=== PATIENT | female | born 1985 ===

== ENCOUNTER 2018-03-12 10:56 | Emergency (ER) | payer OTHER ==
[~2018-03-12] VITALS: Ht 157.5 cm; Wt 66.9 kg
[2018-03-12 11:12] VITALS: TEMP 37; Ht 157.5 cm; Wt 66.9 kg
[2018-03-12 11:57] LABS: BASO % 1.2 %; BASO ABS # 0.05 K/uL (0-0.2); EOS ABS # 0.17 K/uL (0-0.5); HEMATOCRIT 39.5 % (37-47); HEMOGLOBIN 13.4 g/dL (12.0-16.0); IG# 0.01 K/uL (0.00-0.02); LYMPH % 26.3 %; LYMPH ABS # 1.11 K/uL (1.2-3.4); MEAN CORPUSCULAR HEMOGLOBIN 30.5 pg (25-34); MEAN CORPUSCULAR HGB CONC 33.9 g/dl (32-36); MEAN PLATELET VOLUME 10.9 fL (7.4-10.4); MONO ABS # 0.38 K/uL (0.11-0.59); NEUT % 59.3 %; PLATELET COUNT 217 K/uL (130-400); RED CELL DISTRIBUTION WIDTH CV 12.7 % (11.5-14.5); RED CELL DISTRIBUTION WIDTH SD 41.6 fL (36.4-46.3); WHITE BLOOD COUNT 4.22 K/uL (4.8-10.8)
[2018-03-12 12:26] LABS: ALBUMIN 4.2 gm/dl (3.4-5.0); CALCIUM 9.1 mg/dl (8.5-10.1); CREATININE 0.81 mg/dl (0.60-1.20); POTASSIUM 3.8 mmol/L (3.5-5.1); TOTAL PROTEIN 8.1 gm/dl (6.4-8.2)
[2018-03-12] MEDS ORDERED: SULF800T23 PO (13:35)
--- NOTE | 2018-03-12 13:36 | EMERGENCY ROOM VISIT NOTE ---
History First contact with patient: 11:18 Chief Complaint: DIZZY Stated Complaint: SICK TO STOMACH,TIRED,DIZZY,BREASTS HURT(IMPLANTS) Nursing Triage Summary: Fatigue for the past 2 weeks. Near syncopal episode yesterday and this am, nausea. Pt reports she has breast implants, placed 3 years ago. reports pain to bilateral breast for the past 2 weeks, sharp. "I just don't feel myself" History of Present Illness The patient is a 33 year old female who presents to the Emergency Room with complaints of feeling fatigued for the past 2 weeks. The patient reports that she has been tired and does not feel like herself. She has had intermittent headaches. She has had a few episodes while at work when she becomes very hot and sweaty and feels like she is going to pass out. She has not had any syncopal episodes. She states that she has been nauseous in the mornings but has not vomited. She has also had occasional sharp pains in bilateral breasts/ underarms. She has a history of breast implants which were inserted a few years ago. She denies any redness or warmth. She states she is typically healthy and does not take any medications on a daily basis. She does not have a primary care provider in the area. Review of Systems A complete 10 point review of systems was reviewed with the patient with pertinent positives and negatives as per history of present illness. All else were negative. Past Medical/Surgical History Medical Problems: (1) No significant active problems Surgical Problems: (1) History of appendectomy (2) History of bilateral breast implants Social History Smoking Status: Former Smoker Housing Status: lives with family Current/Historical Medications Scheduled Sulfa/Trimethoprim (Bactrim Ds 800MG/160MG), 1 TAB PO BID Physical Exam Vital Signs Date Time Temp Pulse Resp B/P (MAP) Pulse Ox O2 Delivery O2 Flow Rate FiO2 03/12/18 13:57 65 16 110/72 98 03/12/18 13:02 70 16 108/67 98 Room Air 03/12/18 11:56 84 18 121/80 98 Room Air 80 108/77 75 103/85 03/12/18 11:12 37.0 79 18 133/84 99 Room Air Physical Exam VITALS: Vitals are noted on the nurse's note and reviewed by myself. Vital signs stable. GENERAL: This is a 33-year-old female, in no acute distress, nondiaphoretic, well-developed well-nourished. SKIN: The skin was without rashes. EARS: External auditory canals clear, tympanic membranes pearly seo without erythema or effusion bilaterally. EYES: Pupils equal round and reactive to light and accommodation. MOUTH: Mucous membranes moist. Tonsils are not enlarged. Pharynx without erythema or exudate.. NECK: Supple without nuchal rigidity. No lymphadenopathy. HEART: Regular rate and rhythm without murmurs gallops or rubs. LUNGS: Clear to auscultation bilaterally without wheezes, rales or rhonchi. ABDOMEN: Positive bowel sounds x 4. Soft, nontender to palpation. MUSCULOSKELETAL: Full range of motion throughout. Strength 5/5 throughout. NEURO: Patient was alert and oriented to person place and time. PSYCH: Patient is pleasant with appropriate affect. Medical Decision & Procedures Laboratory Results 03/12/18 11:44 Red Blood Count 4.39, Mean Corpuscular Volume 90.0, Mean Corpuscular Hemoglobin 30.5, Mean Corpuscular Hemoglobin Concent 33.9, Mean Platelet Volume 10.9, Neutrophils (%) (Auto) 59.3, Lymphocytes (%) (Auto) 26.3, Monocytes (%) (Auto) 9.0, Eosinophils (%) (Auto) 4.0, Basophils (%) (Auto) 1.2, Neutrophils # (Auto) 2.50, Lymphocytes # (Auto) 1.11, Monocytes # (Auto) 0.38, Eosinophils # (Auto) 0.17, Basophils # (Auto) 0.05 03/12/18 11:44 Test 03/12/18 11:29 03/12/18 11:44 Urine Color YELLOW Urine Appearance CLEAR (CLEAR) Urine pH 6.5 (4.5-7.5) Urine Specific [place] 1.007 (1.000-1.030) Urine Protein NEG (NEG) Urine Glucose (UA) NEG (NEG) Urine Ketones NEG (NEG) Urine Occult Blood NEG (NEG) Urine Nitrite NEG (NEG) Urine Bilirubin NEG (NEG) Urine Urobilinogen NEG (NEG) Urine Leukocyte Esterase MODERATE (NEG) Urine WBC (Auto) 1-5 /hpf (0-5) Urine RBC (Auto) 0-4 /hpf (0-4) Urine Hyaline Casts (Auto) 1-5 /lpf (0-5) Urine Epithelial Cells (Auto) >30 /lpf (0-5) Urine Bacteria (Auto) 1+ (NEG) White Blood Count 4.22 K/uL (4.8-10.8) Red Blood Count 4.39 M/uL (4.2-5.4) Hemoglobin 13.4 g/dL (12.0-16.0) Hematocrit 39.5 % (37-47) Mean Corpuscular Volume 90.0 fL (80-100) Mean Corpuscular Hemoglobin 30.5 pg (25-34) Mean Corpuscular Hemoglobin Concent 33.9 g/dl (32-36) Platelet Count 217 K/uL (130-400) Mean Platelet Volume 10.9 fL (7.4-10.4) Neutrophils (%) (Auto) 59.3 % Lymphocytes (%) (Auto) 26.3 % Monocytes (%) (Auto) 9.0 % Eosinophils (%) (Auto) 4.0 % Basophils (%) (Auto) 1.2 % Neutrophils # (Auto) 2.50 K/uL (1.4-6.5) Lymphocytes # (Auto) 1.11 K/uL (1.2-3.4) Monocytes # (Auto) 0.38 K/uL (0.11-0.59) Eosinophils # (Auto) 0.17 K/uL (0-0.5) Basophils # (Auto) 0.05 K/uL (0-0.2) RDW Standard Deviation 41.6 fL (36.4-46.3) RDW Coefficient of Variation 12.7 % (11.5-14.5) Immature Granulocyte % (Auto) 0.2 % Immature Granulocyte # (Auto) 0.01 K/uL (0.00-0.02) Anion Gap 6.0 mmol/L (3-11) Est Creatinine Clear Calc Drug Dose 87.0 ml/min Estimated GFR () 109.1 Estimated GFR (Non- 94.1 BUN/Creatinine Ratio 18.1 (10-20) Calcium Level 9.1 mg/dl (8.5-10.1) Total Bilirubin 0.3 mg/dl (0.2-1) Aspartate Amino Transf (AST/SGOT) 14 U/L (15-37) Alanine Aminotransferase (ALT/SGPT) 16 U/L (12-78) Alkaline Phosphatase 42 U/L (45-117) Total Protein 8.1 gm/dl (6.4-8.2) Albumin 4.2 gm/dl (3.4-5.0) Globulin 3.9 gm/dl (2.5-4.0) Albumin/Globulin Ratio 1.1 (0.9-2) Thyroid Stimulating Hormone (TSH) 4.180 uIu/ml (0.300-4.500) Human Chorionic Gonadotropin, Qual NEG (NEG) Date/Time Source Procedure Growth Status 03/12/18 11:29 Urine , Clean Catch Urine Culture - Final Gard[place]rella-Like Bacilli Complete ECG Per My Interpretation Indication: other Rate (beats per minute): 71 Rhythm: normal sinus Findings: no acute ischemic change, no ectopy Comparison ECG Date: no prior available Medical Decision Differential diagnosis includes thyroid abnormality, anemia, , viral illness, dehydration, depression/anxiety, among others. The patient is a 33-year-old female who presents today complaining of generalized fatigue. Labs revealed minimal leukopenia with a WBC count of 4.22. Labs are otherwise unremarkable. TSH is within normal limits. Electrolytes within normal limits. Urinalysis was suggestive of possible infection versus contamination. Culture was sent. On further questioning, the patient does admit that she has had some urinary symptoms in the past few weeks. For this reason, I did choose to start her on antibiotics while the culture is pending. Serum was negative. EKG shows a normal sinus rhythm. Orthostatic vital signs were mildly positive. She was advised to keep well-hydrated and follow-up with primary care for a recheck and possible further testing. Based on the patient's presentation and work up, I feel the patient is stable for outpatient treatment. The patient was educated to return to the emergency department for any worsening of their current condition or new/concerning symptoms. She will follow up with her PCP. Medication Reconcilliation Current Medication List: was personally reviewed by me Blood Pressure Screening Patient's blood pressure: Normal blood pressure Impression Primary Impression: Fatigue Departure Information Dispostion Home / Self-Care Condition GOOD Prescriptions Sulfa/Trimethoprim (Bactrim Ds 800MG/160MG) Tab 1 TAB PO BID for 5 Days, #10 TAB Prov: Lolita Parker ., CARLOS 03/12/18 Referrals No Doctor, Assigned (PCP) Patient Instructions My [facility] Additional Instructions You were prescribed Bactrim to be taken twice daily as prescribed. This is an antibiotic for a possible UTI. All antibiotics have the potential to cause diarrhea. Stop this medication and contact a medical provider if you were to develop any significant adverse side effects including: wheezing, shortness of breath, passing out, vomiting, or a diffuse rash. Always take antibiotics as directed and COMPLETE the ENTIRE course regardless of the improvement of your symptoms. For pain control, you can use the following [id number] medicines (if >12 yo): - Regular strength (325mg/tab) Tylenol (acetaminophen) 2 tabs every 4-6 hours as needed. Do not exceed 12 tablets in a 24 hour period. Avoid taking more than 4 grams (4000 mg) of Tylenol per day. This includes any other sources of acetaminophen you may take on a regular basis. - Regular strength (200 mg/tab) Advil (ibuprofen) 1-2 tabs every 4-6 hours as needed. Do not exceed a dose of 3200 mg per day. Make sure to rest and drink plenty of fluids. As best, you should try to drink some electrolyte drinks such as Gatorade. Schedule a follow-up appointment with your primary care provider within the next 2 weeks for recheck and any further testing which may be necessary. Her white blood cell count was slightly low today. This can be rechecked by your primary care provider. Return to the emergency department as needed for any worsening or new/ concerning symptoms.
[2018-03-12 13:57] VITALS: BP 110/72; PULSE 65; O2SAT 98
== END 2018-03-12 13:49 | disposition home or self-care (01) ==
LOC: C.EDB 11:00 → C.EDC 13:49
DX: R42 Dizziness and giddiness (principal); R53.83 Other fatigue; N64.4 Mastodynia; Z98.82 Breast implant status; Z87.891 Personal history of nicotine dependence